=== PATIENT | male | born 2000 | race Caucasian/White ===

== ENCOUNTER → 2020-06-27 | Outpatient (CLI) | payer OTHER ==
[~2020-06-27] MED LIST: ISOVUE-300 61% 50ML VIAL As Ordered ONE; LIDOCAINE 1% MDV 20ML VIAL As Ordered ONE; TRIAMCINOLONE ACETONIDE SUSP 40 MG/ML VIAL (J3301) As Ordered ONE
--- NOTE | 2020-06-27 15:46 | REP ---
INDICATION: OTHER SPONDYLOSIS WITH RADICULOPATHY, LUMBOSACRAL REGION. COMPARISON: None TECHNIQUE: The procedure was performed by CHRIS Elaine, under the direct supervision of Dr. Branch. The benefits and risks of the procedure were explained to the patient, and an informed consent was obtained. Directly prior to the start of the procedure, a formal time-out was completed in the procedure room. The right femoral neck joint space was localized using fluoroscopic guidance. The skin was prepped and draped in a sterile fashion. Approximately 5 mL of 1% Lidocaine 10 mg/ml was used as a local anesthetic. Using fluoroscopic guidance, a #22 gauge spinal needle was inserted and advanced into the right femoral neck joint space. Approximately 1 mL of Isovue 300 was injected to verify placement. 10 ML of a solution containing 9 mL 1% lidocaine 10 mg/ml and 1 mL Kenalog 40 milligrams/milliliter was injected into the joint space. The needle was removed and hemostasis was achieved. 0.1 minutes of fluoroscopy time was utilized for this procedure. Some fluoroscopic images are performed with last image hold technology. These images require no additional radiation. FINDINGS: The patient tolerated the procedure well and there were no immediate complications. IMPRESSION: 1. Right femoral neck intra-articular pain injection under fluoroscopic guidance. <Electronically signed by Lauren Jimenez > 06/27/20 1319 <Electronically signed by Casimiro Branch > 06/27/20 [id number]
== END ==
LOC: M RADPRO 11:16
PROVIDERS: ATTEND Orthopaedic Surgery
DX: M24.851 Other specific joint derangements of right hip, not elsewhere classified (principal)
CPT/HCPCS: 20610; 77002; J3301; Q9967

== ENCOUNTER → 2021-07-31 | Outpatient (CLI) | payer OTHER | LOC: M RADPRO 13:18 | PROVIDERS: ATTEND Physician Assistant Surgical | DX: M25.551 Pain in right hip (principal); Z98.890 Other specified postprocedural states | CPT/HCPCS: 20610; 77002; J3301; Q9967 ==

== ENCOUNTER 2022-01-21 19:18 | Emergency (ER) | payer OTHER ==
[~2022-01-21] VITALS: Ht 180.3 cm; Wt 65.8 kg
[2022-01-21 19:43] VITALS: BP 130/70
[2022-01-21 20:29] LABS: RSV AMPLIFICATION NEGATIVE (NEGATIVE)
[2022-01-21 20:30] LABS: ACETAMINOPHEN LEVEL < 2.0 UG/ML (10.0-30.0); ALT/SGPT 14 U/L (12-78); BILIRUBIN,DIRECT 0.2 MG/DL (0.0-0.2); BILIRUBIN,TOTAL 0.5 MG/DL (0.2-1.0); BLOOD UREA NITROGEN 5 MG/DL (7-18); CALCIUM LEVEL 8.9 MG/DL (8.5-10.1); CARBON DIOXIDE LEVEL 28 MEQ/L (21-32); CHLORIDE LEVEL 104 MEQ/L (98-107); CREATININE FOR GFR 0.86 MG/DL (0.70-1.30); ETHYL ALCOHOL (ETHANOL) 0.101 % (0.000-0.010); GLOMERULAR FILTRATION RATE > 60.0 (>60); GLUCOSE, FASTING 93 MG/DL (70-100); POTASSIUM SERUM 3.8 MEQ/L (3.5-5.1); SALICYLATE LEVEL < 1.7 MG/DL (5.0-30.0); SODIUM LEVEL 140 MEQ/L (136-145); THYROID STIMULATING HORMONE 0.669 uIU/ML (0.358-3.740); TOTAL PROTEIN 7.3 GM/DL (6.4-8.2)
[2022-01-21 20:37] LABS: HEMATOCRIT 39.8 % (42.0-52.0); HEMOGLOBIN 14.3 g/dl (13.5-17.5); MEAN CORPUSCULAR HEMOGLOBIN 30.8 pg (27.0-33.0); MEAN CORPUSCULAR HGB CONC 35.9 g/dl (32.0-36.5); MEAN CORPUSCULAR VOLUME 85.6 fl (80.0-96.0); PLATELET COUNT, AUTOMATED 268 10^3/uL (150-450); RED BLOOD COUNT 4.65 10^6/uL (4.30-6.10); WHITE BLOOD COUNT 5.9 10^3/uL (4.0-10.0)
[2022-01-21 21:09] LABS: AMPHETAMINES LEVEL URINE NEGATIVE (NEGATIVE); BARBITURATES URINE NEGATIVE (NEGATIVE); BENZODIAZEPINES URINE NEGATIVE (NEGATIVE); CANNABINOIDS URINE NEGATIVE (NEGATIVE); COCAINE METABOLITE URINE NEGATIVE (NEGATIVE); METHADONE URINE NEGATIVE (NEGATIVE); OPIATES URINE NEGATIVE (NEGATIVE); PHENCYCLIDINE URINE NEGATIVE (NEGATIVE)
== END 2022-01-21 23:36 | disposition home or self-care (01) ==
LOC: M ED 19:18
DX: F43.0 Acute stress reaction (principal); F10.129 Alcohol abuse with intoxication, unspecified; F17.290 Nicotine dependence, other tobacco product, uncomplicated